=== PATIENT | female | born 1940 | race Caucasian/White ===

== ENCOUNTER 2018-02-25 10:47 | Emergency (ER) | payer MEDICARE, OTHER ==
[~2018-02-25] VITALS: Ht 152.4 cm; Wt 90.3 kg
[2018-02-25] MEDS ORDERED: IBRANCE100 MG PO (11:10)
[2018-02-25] MEDS ORDERED: FASLODEX250 MG/5 M IM (11:11)
[2018-02-25] MEDS ORDERED: BLOOD PRESSURE MED (11:12)
[2018-02-25 11:15] LABS: URINE BILIRUBIN NEGATIVE (Negative); URINE BLOOD NEGATIVE (Negative); URINE CLARITY CLEAR; URINE COLOR YELLOW; URINE GLUCOSE-RANDOM NEGATIVE (Negative); URINE KETONES TRACE (Negative); URINE PROTEIN TRACE (Negative); URINE UROBILINOGEN 0.2 E.U./dl (0.2-1.0)
[2018-02-25 11:17] LABS: URINE LEUKOCYTES-REFLEX 3+ (Negative); URINE NITRITE-REFLEX POSITIVE (Negative)
[2018-02-25 11:38] LABS: CASTS None Seen /LPF (None Seen); CRYSTALS None Seen /LPF (None Seen); MUCUS 4-6 Moderate strn/LPF (None Seen); SQUAMOUS 4-10 Moderate /LPF (0-3); URINE RBC 0-2 Rare /HPF (0-2)
[2018-02-25 11:38] LABS: ABSOLUTE EOSINOPHILS 0.1 thou/uL (0.0-0.7); ABSOLUTE LYMPHOCYTES 0.6 thou/uL (0.8-5.3); ABSOLUTE MONOCYTES 0.2 thou/uL (0.0-1.2); ABSOLUTE NEUTROPHILS 2.4 thou/uL (1.6-8.1); BASOPHILS 1.5 %; HEMATOCRIT 37.4 % (37.0-47.0); HEMOGLOBIN 12.3 gm/dL (12.0-15.0); MCH 28.8 pg (26.0-34.0); MCHC 32.9 g/dL (28.0-37.0); MCV 87.4 fL (80.0-100.0); MONOCYTES 4.8 %; MPV 7.6 fl. (7.2-11.1); NUCLEATED RBCS 0 /100WBC; PLATELET COUNT* 220 thou/uL (150-400); POLYS 72.7 %; RBC 4.28 mil/uL (4.20-5.00); RDW-CV 13.6 % (10.5-14.5); WBC 3.3 thou/uL (4.0-11.0)
[2018-02-25 11:53] LABS: CALCIUM 8.6 mg/dL (8.5-10.1); POTASSIUM 4.1 mmol/L (3.5-5.1)
[2018-02-25 11:58] LABS: ALBUMIN 3.5 g/dL (3.4-5.0); TOTAL BILIRUBIN 0.6 mg/dL (<0.1-1.0); TOTAL PROTEIN 7.9 g/dL (6.4-8.2)
[2018-02-25] MEDS ORDERED: AMLODIPINE-OLM1 EAC1 PO (12:33)
[2018-02-25] MEDS ORDERED: NORCO 5-325 TA1 EACH PO (13:30)
[2018-02-25] MEDS ORDERED: KEFLEX500 M1 PO (13:30)
[2018-02-25 13:53] VITALS: BP 138/67
== END 2018-02-25 13:54 | disposition home or self-care (01) ==
LOC: M.ERS 10:47
PROVIDERS: Emergency Medicine Emergency Medical Services
DX: N39.0 Urinary tract infection, site not specified (principal); M19.90 Unspecified osteoarthritis, unspecified site; M25.552 Pain in left hip

== ENCOUNTER 2018-08-22 10:48 | Inpatient (IN) | payer MEDICARE, OTHER ==
[~2018-08-22] VITALS: Ht 152.4 cm; Wt 79.4 kg
--- NOTE | ~2018-08-22 | PROC ---
[address] [address] PROCEDURE REPORT Name: OBEY SAINZ Room: [address] IN .R.#: [id number] Admission: 08/22/18 Attend Phys: Laurel Shukla MD Discharge: Date of : 40 Report #: [id number] THIS REPORT FOR: //name// For GI report, please see the Provation report in Perceptive 7 content. By: [id number] Records Staff JUAN A /TAE
[~2018-08-22 10:48] MED LIST: AMLODIPINE BESY10 MG PO; BLOOD PRESSURE MED; FASLODEX250 MG/5 M IM; IBRANCE100 MG PO; KEFLEX500 M1 PO; NORCO 5-325 TA1 EACH PO
[2018-08-22 10:50] VITALS: BP 154/63
[2018-08-22 11:24] LABS: ABSOLUTE BASOPHILS 0.1 thou/uL (0.0-0.2); ABSOLUTE LYMPHOCYTES 0.6 thou/uL (0.8-5.3); ABSOLUTE MONOCYTES 0.1 thou/uL (0.0-1.2); ABSOLUTE NEUTROPHILS 1.8 thou/uL (1.6-8.1); BASOPHILS 2.7 %; EOSINOPHILS 1.4 %; HEMATOCRIT 32.4 % (37.0-47.0); HEMOGLOBIN 11.1 gm/dL (12.0-15.0); LYMPHOCYTES 21.5 %; MCH 33.2 pg (26.0-34.0); MCHC 34.2 g/dL (28.0-37.0); MCV 97.2 fL (80.0-100.0); MONOCYTES 5.3 %; MPV 7.8 fl. (7.2-11.1); NUCLEATED RBCS 0 /100WBC; PLATELET COUNT* 279 thou/uL (150-400); POLYS 69.1 %; RBC 3.33 mil/uL (4.20-5.00); RDW-CV 18.4 % (10.5-14.5); WBC 2.6 thou/uL (4.0-11.0)
[2018-08-22 11:42] LABS: ALBUMIN 3.4 g/dL (3.4-5.0); CALCIUM 8.8 mg/dL (8.5-10.1); POTASSIUM 3.6 mmol/L (3.5-5.1); TOTAL BILIRUBIN 0.4 mg/dL (<0.1-1.0)
[2018-08-22 15:03] VITALS: BP 116/39
[2018-08-22 15:19] VITALS: BP 103/65
[2018-08-22 15:45] LABS: URINE BILIRUBIN NEGATIVE (Negative); URINE BLOOD NEGATIVE (Negative); URINE CLARITY CLEAR; URINE COLOR YELLOW; URINE GLUCOSE-RANDOM NEGATIVE (Negative); URINE KETONES NEGATIVE (Negative); URINE LEUKOCYTES-REFLEX NEGATIVE (Negative); URINE NITRITE-REFLEX NEGATIVE (Negative); URINE PROTEIN NEGATIVE (Negative); URINE SPECIFIC GRAVITY <= 1.005 (1.005-1.030); URINE UROBILINOGEN 0.2 E.U./dl (0.2-1.0)
--- NOTE | 2018-08-22 16:36 | NUR ---
PATIENT CAME TO THE FLOOR FROM THE ER VIA CART IN STABLE CONDITION. SOME PAIN IN KNEES AND LEGS THAT IS CHRONIC. VITAL SIGNS STABLE ON ROOM AIR. PATIENT IS UP STAND BY TO THE BEDSIDE COMMODE. IV FLUIDS RUNNING IN LEFT UPPER ARM. PATIENT UNABLE TO FIND GLASSES, FAMILY IS GOING TO LOOK AT THE HOUSE. ROOM ORIENTATION AND ADMISSION ASSESSMENT DONE, QUESTIONS ANSWERED FOR PATIENT AND FAMILY, CALL LIGHT IS IN REACH, WILL CONTNUE TO MONITOR,.
[2018-08-22 19:30] VITALS: BP 139/70
[2018-08-23 04:07] LABS: HEMATOCRIT 28.6 % (37.0-47.0); HEMOGLOBIN 9.7 gm/dL (12.0-15.0); MCH 33.1 pg (26.0-34.0); MCHC 33.9 g/dL (28.0-37.0); MCV 97.5 fL (80.0-100.0); MPV 8.3 fl. (7.2-11.1); RBC 2.94 mil/uL (4.20-5.00); RDW-CV 18.7 % (10.5-14.5); WBC 2.4 thou/uL (4.0-11.0)
[2018-08-23 04:36] LABS: CALCIUM 8.2 mg/dL (8.5-10.1); CREATININE 0.9 mg/dL (0.6-1.3); MAGNESIUM 1.9 mg/dL (1.8-2.4); POTASSIUM 3.6 mmol/L (3.5-5.1); TOTAL BILIRUBIN 0.5 mg/dL (<0.1-1.0); TOTAL PROTEIN 6.2 g/dL (6.4-8.2)
--- NOTE | 2018-08-23 05:44 | NUR ---
PT SLEPT ON AND OFF THIS SHIFT. ASSESSMENT DOCUMENTED. MEDS GIVEN PER E-MAR. PAIN MEDS GIVEN PER E-MAR FOR KNEE AND SHOULDER PAIN. PT UP TO BSC THIS SHIFT. IV PATENT, FLUIDS INFUSING. WILL CONTINUE WITH PLAN OF CARE.
[2018-08-23 08:00] VITALS: BP 130/63
--- NOTE | 2018-08-23 14:56 | NUR ---
SPOKE WITH PT.AND SON,OSMIN. PT.ALERT AND ORIENTED. SHE ANSWERED ALL OF THE QUESTIONS. SHE SAID HER NIECE AND NIECES LIVE WITH HER IN HER BASEMENT AND PT.LIVES UPSTAIRS. NIECE,LISA, WORKS DURING THE DAY BUT CAN HELP HER IN THE EVENINGS. SON,OSMIN CHECKS ON HER DURING THE DAY. HE WORKS AT HIS HOME. PT.HAS A WALKER,TRANSPORT WC,GRAB BARS AND SHWER BENCH. HAS HOME HEALTH BUT CAN'T REMEMBER NAME OF AGENCY. PT.AWARE OF PLAN OF SNF AT [facility] AND THEN LTC. SHE SAID SHE DID NOT WANT TO BE A BURDEN ON NIECE. WILL NEED PT./OT EVALS FOR SNF ACCEPTANCE. WILL ORDER. PT.STATED SHE USED TO BE ABLE TO AMBULATE BUT NO LONGER CAN. CALL TO [facility] TO DISCUSS DISCHARGE PLANS. FAXED HER H&P,CONSULTS AND MED LIST TO HER [phone].
--- NOTE | 2018-08-23 17:46 | NUR ---
PT REMAINED A&O X 4.. VITALS, SpO2 STABLE. PAIN CONTROLLED BY MEDS. DIET CHAGED FROM NPO TO CLEAR LIQUID. PT TOLERATED FOOD WITHOUT NAUSEA AND VOMITING. PT EDUCATED ON MEDS AND VERBALIZED UNDERSTANDING. LAXATIVE GIVEN. STOOL SAMPLE SENT TO THE LAB. CALL LIGHT WITHIN REACH. BED ALARM ON. HOURLY ROUNDING COMLETED. WILL CONTINUE TO MONITOR.
[2018-08-23 18:57] VITALS: BP 123/56
[2018-08-23 22:00] VITALS: BP 143/67
[2018-08-24 01:18] VITALS: BP 143/67
--- NOTE | 2018-08-24 04:43 | NUR ---
PATIENT HAS REMANINED ALERT AND ORIENTED X 4 THROUGHOUT THE SHIFT AND RESTING AT INTERVALS ON HOURLY ROUNDS. GI PREP IN PROGRESS. NEARING CLEAR STATUS. NPO AT MIDNIGHT. IVF'S AND ANTIBIOTICS PER ORDER. ASSIST TO BSC WITH MIN/MOD ASSIST. VITAL SIGNS STABLE. CONTINUE TO MONITOR.
[2018-08-24 08:15] VITALS: BP 127/59
[2018-08-24 08:32] VITALS: BP 143/67
[2018-08-24 09:15] VITALS: BP 145/68
--- NOTE | 2018-08-24 11:12 | EKG ---
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: : 1940 Requested By: Alicia Rowland Order Number: [id number] Reading MD: Stephane Richards Measurements Intervals [place] Rate: 76 P: 24 MN: 177 QRS: -15 QRSD: 85 T: -3 QT: 390 QTc: 439 Interpretive Statements Sinus rhythm Borderline left axis deviation Low voltage, precordial leads Abnormal T, consider ischemia, anterior leads No previous ECG available for comparison Electronically Signed On 08-24-2018 11:11:45 CDT by Stephane Richards [email or web address] <ELECTRONICALLY SIGNED> By: Stephane Richards MD, [facility] 08/24/18 [phone] Stephane Richards MD, [facility] /EPI
--- NOTE | 2018-08-24 16:34 | NUR ---
PATIENT ALERT AND ORIENTED X 4. VITAL SIGNS STABLE ON ROOM AIR. AFEBRILE. UP WITH ASSISTANCE TO THE BEDSIDE COMODE. IV PATENT WITH FLUIDS INFUSING PER MAR. DENIES NAUSEA. PAIN BEING MANAGED WITH ORAL MEDICATION. TOLERATING REGULAR DIET. HOURLY ROUNDS MAINTAINED THROUGHOUT THE SHIFT. CALL LIGHT WITHIN REACH. NURSING WILL CONTINUE TO MONITOR.
[2018-08-24 18:05] VITALS: BP 135/58
[2018-08-24 22:30] VITALS: BP 136/61
[2018-08-25 04:12] LABS: ABSOLUTE EOSINOPHILS 0.1 thou/uL (0.0-0.7); ABSOLUTE LYMPHOCYTES 0.5 thou/uL (0.8-5.3); ABSOLUTE MONOCYTES 0.1 thou/uL (0.0-1.2); ABSOLUTE NEUTROPHILS 1.2 thou/uL (1.6-8.1); BASOPHILS 2.4 %; EOSINOPHILS 4.4 %; HEMATOCRIT 27.9 % (37.0-47.0); HEMOGLOBIN 9.9 gm/dL (12.0-15.0); LYMPHOCYTES 25.7 %; MCH 34.6 pg (26.0-34.0); MCHC 35.3 g/dL (28.0-37.0); MCV 98.1 fL (80.0-100.0); MONOCYTES 7.2 %; MPV 8.2 fl. (7.2-11.1); NUCLEATED RBCS 0 /100WBC; PLATELET COUNT* 216 thou/uL (150-400); POLYS 60.3 %; RBC 2.85 mil/uL (4.20-5.00); RDW-CV 18.8 % (10.5-14.5); WBC 2.1 thou/uL (4.0-11.0)
[2018-08-25 04:30] LABS: ALBUMIN 3.1 g/dL (3.4-5.0); CALCIUM 8.4 mg/dL (8.5-10.1); CREATININE 0.8 mg/dL (0.6-1.3); MAGNESIUM 1.7 mg/dL (1.8-2.4); POTASSIUM 3.3 mmol/L (3.5-5.1); TOTAL BILIRUBIN 0.4 mg/dL (<0.1-1.0)
--- NOTE | 2018-08-25 05:32 | NUR ---
ASSUMED CARE AT START OF SHIFT PT AWAKE EVERY 2 HOUR UP TO BSC VOIDING NO STOOL NOTED DENIES ABD PAIN , C/O OF CHRONIC SHOULDER AND NECK PAIN MEDICATION GIVEN ORDERED. NO CHNAGES NOTED IN PT ASSESSMENT.
[2018-08-25 08:30] VITALS: BP 133/63
--- NOTE | 2018-08-25 17:58 | NUR ---
PATIENT ALERT AND ORIENTED X 4. VITAL SIGNS STABLE ON ROOM AIR. AFEBRILE. UP WITH ASSISTANCE TO THE BEDSIDE COMODE. IV PATENT WITH FLUIDS INFUSING PER MAR. PAIN BEING MANAGED WITH PO MEDICATION. DENIES NAUSEA AT THIS TIME. FALL PRECAUTIONS IN PLACE AND BED ALARM ON. HOURLY ROUNDS MAINTAINED THROUGHOUT THE SHIFT. CALL LIGHT WITHIN REACH. NURSING WILL CONTINUE TO MONITOR.
[2018-08-25 18:13] VITALS: BP 136/54
[2018-08-25 20:00] VITALS: BP 124/55
--- NOTE | 2018-08-26 05:33 | NUR ---
ASSUMED PT CARE AT 1930. PT ALERT AND ORIENTED X4. UP WITH ASSIST OF ONE TO BSC TO VOID NUMEROUS TIMES OVERNIGHT. SCHEDULED TRAMADOL FOR PAIN. ON ROOM AIR. PT TO DISCHARGE TO [facility] TODAY. USES CALL LIGHT APPROPRIATELY. HOURLY ROUNDING IN PROGRESS, WILL CONTINUE TO MONITOR.
[2018-08-26 08:00] VITALS: BP 143/72
--- NOTE | 2018-08-26 10:11 | NUR ---
ELEONORA FAXED UPDATED PT/OT TO DRAGAN/SHARAN AT [facility]. SHE SAID SHE WILL QUICKLY REVIEW AND SHOULD BE ABLE TO ACCEPT PT.TODAY. SHE WILL CALL ELEONORA BACK.
[2018-08-26] MEDS ORDERED: TRAMADOL 50 MG50 MG PO (10:30)
[2018-08-26] MEDS ORDERED: NORCO 5-325 TA1 EACH PO (10:30)
[2018-08-26] MEDS ORDERED: LIDOPATCH1 EACH TOP (10:30)
--- NOTE | 2018-08-26 12:23 | NUR ---
SPOKE TO DR MARCUM. STATED THAT SHE IS OK WITH THE PT DISCHARGING TO [facility].
[2018-08-26 12:24] VITALS: BP 143/72
--- NOTE | 2018-08-26 14:33 | NUR ---
PT.OFF 2 CANCER MEDS AT THIS TIME AND ORDERS TO STOP TAKING THEM AT SNF. THUY SAID FACILTIY IS WORRIED PT.WILL NEED TO GO BACK ON THESE MEDS BEFORE SNF TIME IS UP. MEDS ARE OVER $1700. PT.HAD BEEN GETTING THESE MEDS AT HOME THROUGH [facility]. THUY HAS BEEN SPEAKING WITH NITZA/PETERSON MARTÍNEZ AND HER D.O.N. SHE HAS A CALL OUT TO . IF THEY CANNOT ACCEPT PT.TO SNF ROOM COULD MOST LIKELY TAKE HER LTC. WILL DISCUSS WITH PT.ONCE PLAN KNOWN.
[2018-08-26 16:11] VITALS: BP 148/63
--- NOTE | 2018-08-26 17:12 | NUR ---
PT REMAINED A&Ox4 THROUGHOUT SHIFT. UP WITH STAND BY ASSIST. TOLERATED REGULAR DIET. IV IN L AC PATENT, SL. PAIN CONTROLLED WITH TRAMADOL. WORKED WITH THERAPY AND GOT UP IN CHAIR. CALL LIGHT WITHIN REACH. FALL PRECAUTIONS IN PLACE. WILL CONTINUE TO MONITOR.
[2018-08-26 21:00] VITALS: BP 127/50
--- NOTE | 2018-08-27 06:57 | NUR ---
PATIENT HAS SLEPT WELL THROUGHOUT THE NIGHT. VSS ON RA. MEDICATIONS GIVEN ORDERED AND CHARTED. PATIENT UP WITH ASSIST X 1 WITH WALKER AND GAITBELT TO BSC. IV IN LEFT AC-SL. PATIENT INSRUCTED TO USE CALL LIGHT WHEN NEEDING ASSISTANCE. HOURLY ROUNDS MADE. WILL CONTINUE WITH PLAN OF CARE AND NURSING TO MONITOR.
[2018-08-27 08:00] VITALS: BP 145/66
--- NOTE | 2018-08-27 13:44 | NUR ---
SPOKE WITH LENIN/'S NURSE THIS AM. SHE SAID PT.COULD COME BY OFFICE PRIOR TO GOING TO [facility] TO GET HER FASLODEX INJECTION. SHE SCHEDULED AN APPT.FOR 2:30 AT [place] OFFICE. SHE SAID IT WOULD ONLY TAKE APPROX 15 MIN. HERBIE COULD THEN TAKE PT.ONTO [facility]. ROBEL STONER ARRANGED FOR 1330 WITH [facility]/TY VAN [phone]. HE IS AWARE THEY ARE TO WAIT FOR PT[place] [facility] INFORMED. SHE CONFIRMS THEY CAN ACCEPT PT.TO A SKILLED BED TODAY. INFORMED PT. SHE WILL HAVE SON,COME TO FOLLOW HER. SHE SAID HER NIECE,NITZA,IS ALSO AWARE. CHART COPIED TO GO WITH PT. KATHE REYNOLDS WILL CALL REPORT. FAXED DISCHARGE SUMMARY TO THUY .
--- NOTE | 2018-08-27 14:01 | NUR ---
PT DISCHARGED AND LEFT UNIT AT 1400 WITH TRANSPORTER AND NURSING STAFF. PT STABLE. IV REMOVED. PT PERSONAL ITEMS, DISCHARGE PAPERS AND PAPER SCRIPTS SENT WITH PT. REPORT CALLED 1324 TO
--- NOTE | 2018-09-01 13:47 | CON ---
[address] [address] CONSULTATION Name: OBEY SAINZ Room: [address]#: [id number] Admission: 08/22/18 Attend Phys: Laurel Shukla MD Discharge: 08/27/18 Date of : 40 Report #: [id number] THIS REPORT FOR: //name// CC: Sue Roa MD DICTATED BY: Alicia Rowland [facility] DATE OF SERVICE: 08/23/2018 Please note, at the time of this dictation, the patient was seen and physically examined by myself. REASON FOR CONSULTATION: Abnormal CT findings of her colon. HISTORY OF PRESENT ILLNESS: This is a 78-year-old female who presents to the Emergency Room with alteration in her bowel habits. The patient states that she started taking pain medicine a couple of weeks ago that developed constipation and now, it has progressed to having some loose, which she states are very dark stools unlike what the color has been previously. She denies any nausea or vomiting or any abdominal pain at this time. She does state she does have a pressure feeling and trying to pass some gas. Otherwise, the patient has never had any endoscopic evaluation done either. ALLERGIES: No known drug allergies. MEDICATIONS: From home include Ibrance, Faslodex, amlodipine and hydrocodone. 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 FAMILY HISTORY: Negative for any GI or female cancers. SOCIAL HISTORY: Negative for any alcohol, tobacco or illegal drug use. REVIEW OF SYSTEMS: Twelve-point review of systems is essentially negative except what is mentioned in the HPI. PHYSICAL EXAMINATION: VITAL SIGNS: Temperature 37.1, pulse 75, respirations 16, blood pressure 139/70. HEART: Regular rate and rhythm. L[place]GS: [place] [id number] CONSULTATION Name: OBEY SAINZ Room: [address]#: [id number] Admission: 08/22/18 Attend Phys: Laurel Shukla MD Discharge: 08/27/18 Date of : 40 Report #: [id number] ABDOMEN: Soft, positive bowel sounds in all 4 quadrants with no masses or tenderness noted. CT of the abdomen and pelvis shows a small hiatal hernia. There is some focal thickening involving the upper posterior fundus of the stomach measuring 1.9 x 3.1 cm in size suggestive of a posterior mass just posterior to the GE junction that is nonobstructing. Small bowel unremarkable. Gallbladder present with several calcified stones. Liver is slightly lobulated, may reflect cirrhosis. Colon shows a possible cystic or mucinous structure filling the lower cecum, which showed some inflammation in that area and diffuse edema in the ascending part of the colon and then thickening noted in the sigmoid, especially at the junction of the sigmoid colon and the rectal vault. LABORATORY DATA: Hemoglobin on admission is 11.1, she is 9.7; white count is 2.4, platelets 230. GFR is 61 and her LFTs are completely normal. IMPRESSION: 1. Abnormal CT of the colon at the cecum and also thickening at the gastroesophageal junction of the stomach. 2. Constipation, then diarrhea. 3. Anemia. 4. Leukopenia. 5. History of breast cancer with metastasis to the bone and lung. PLAN: 1. EGD and colonoscopy tomorrow with Dr. Garcia, time to be determined. 2. AFP. 3. Further recommendations to be made once the procedure has been performed. Thank you for allowing us to participate in this patient's care. Please do not hesitate to call with any questions in regards to this consultation. <ELECTRONICALLY SIGNED> By: Fan Garcia DO 09/01/18 1347 1059 [id number] Garcia DO /nt
--- NOTE | 2018-09-01 13:47 | CON ---
[address] [address] CONSULTATION Name: OBEY SAINZ Room: [address] IN M.R.#: [id number] Admission: 08/22/18 Attend Phys: Laurel Shukla MD Discharge: 08/27/18 Date of : 40 Report #: [id number] THIS REPORT FOR: //name// CC: ESTHER MARCUM DATE OF SERVICE: 08/22/2018 ADDENDUM TO JOB NUMBER [id number] REFERRING PHYSICIAN: Dr. Laurel Shukla. I have seen and examined the patient and agree with plan that has been outlined by our nurse practitioner, Alicia Rowland. The patient is a very pleasant 78-year-old white female who has been battling metastatic breast cancer for quite some time, was admitted to hospital with complaints of severe constipation with some diarrhea and other issues. She underwent evaluation in the ER and was found to be dehydrated and was admitted to the hospital for further evaluation and treatment. Fortunately, she did not have any nausea, vomiting, hematemesis or hematochezia, but had been very constipated for about for several days. She has not been eating very much. She has never had any problems related to her upper or lower GI tract in the past, never undergone previous endoscopic studies of the same. Upon admission, she underwent CT scan of the chest, abdomen and pelvis, which revealed multiple small nodules within the lung, which were compatible with her known metastatic disease to the lung, but there were some findings to suggest there may be some thickening of the posterior fundus of her stomach and possible thickening of her colon as well as a cystic mass noted within the cecum. She also had some mild pancytopenia. The other concern was whether or not there were some changes in her liver suggestive of cirrhosis as the outline of the liver was irregular and there was mild splenomegaly. At the present time, the patient is currently undergoing bowel preparation in anticipation of upper and lower endoscopy. We will proceed with those studies tomorrow and make further recommendations thereafter. I discussed the nature, risks, benefits, alternatives of the procedure with the [place] [id number] CONSULTATION Name: OBEY SAINZ Room: [address]#: [id number] Admission: 08/22/18 Attend Phys: Laurel Shukla MD Discharge: 08/27/18 Date of : 40 Report #: [id number] sonYoan, and everyone is in agreement with the same. We will proceed with the same tomorrow. <ELECTRONICALLY SIGNED> By: Fan Garcia DO 09/01/18 1347 1845 [id number] Garcia DO /nt
== END 2018-08-27 13:30 | DRG 393 ==
LOC: M.ERS 10:48 → M.TBA-ER 13:52 → M.3W 13:52 → M.ORTHSURG 08-23 07:49
PROVIDERS: Internal Medicine; Physician Assistant; ADMIT Internal Medicine
PROC: 0DJD8ZZ Inspection of Lower Intestinal Tract, Via Natural or Artificial Opening Endoscopic (ICD-10-PCS; principal; 2018-08-24)
PROC: 0DJ08ZZ Inspection of Upper Intestinal Tract, Via Natural or Artificial Opening Endoscopic (ICD-10-PCS; principal; 2018-08-24)
DX: K55.039 Acute (reversible) ischemia of large intestine, extent unspecified (principal); K57.31 Diverticulosis of large intestine without perforation or abscess with bleeding; K55.21 Angiodysplasia of colon with hemorrhage; C78.00 Secondary malignant neoplasm of unspecified lung; C79.51 Secondary malignant neoplasm of bone; E44.1 Mild protein-calorie malnutrition; C50.919 Malignant neoplasm of unspecified site of unspecified female breast; I10 Essential (primary) hypertension; K59.00 Constipation, unspecified; D64.9 Anemia, unspecified; D72.819 Decreased white blood cell count, unspecified; M19.012 Primary osteoarthritis, left shoulder; D12.2 Benign neoplasm of ascending colon; D17.5 Benign lipomatous neoplasm of intra-abdominal organs; M19.011 Primary osteoarthritis, right shoulder; M17.0 Bilateral primary osteoarthritis of knee; K44.9 Diaphragmatic hernia without obstruction or gangrene; K64.9 Unspecified hemorrhoids; Z68.34 Body mass index [BMI] 34.0-34.9, adult; Z79.899 Other long term (current) drug therapy